=== PATIENT | female | born 2000 | race Caucasian/White ===

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

== ENCOUNTER 2022-03-18 01:38 | Outpatient (CLI) | payer MEDICAID, SELFPAY ==
--- NOTE | 2022-03-18 | DI.MRI_ITS ---
Exam(s) MR LOWER EXTREMITY RT WO EXAM: MR LOWER EXTREMITY RT WO CLINICAL HISTORY: RT MEDIAL TIBIAL STRESS SYNDROME,S86.891A. TECHNIQUE: Multiplanar multisequence MRI was performed. COMPARISON: MR MR LOWER EXTREMITY LT WO from 12/23/2019 CR XR KNEE 4 VIEW RIGHT from 02/20/2022 FINDINGS: BONES: There is no fracture or contusion pattern. There does appear to be a small amount of periostea l fluid at the level of the anterior tibial tubercle just inferior to the insertion site of the krishnamurthy lar tendon. JOINTS: Articular cartilage is unremarkable. No effusion is present. TENDONS: Extensor mechanism: There is very mild increased signal seen in the inferior aspect of the inferior p atellar tendon. Medial retinaculum: The visualized portion of the medial retinaculum is unremarkable. Lateral retinaculum: The visualized portion of the lateral retinaculum is unremarkable. Popliteus: Unremarkable. MUSCLES: Unremarkable. MENISCI: The medial meniscus is unremarkable. The lateral meniscus is unremarkable. SOFT TISSUES: There is mild edema in the soft tissues anterior to the anterior tibial tubercle. LIGAMENTS: Anterior Cruciate: Unremarkable. Posterior Cruciate: Unremarkable. Medial Collateral:Unremarkable. Lateral Collateral: Unremarkable. OTHER: IMPRESSION: Mild periosteal edema at the level of the anterior tibial tubercle with surrounding mild edema in the soft tissues. The findings can be seen with medial tibial stress syndrome. Patellar tendinitis and anterior patellar bursitis should also be considered. DATA REPOSITORY:
== END 2022-03-18 01:58 ==
LOC: DI 01:38
PROVIDERS: PCP Specialist; Visit Provider Physician Assistant
DX: S86.891A Other injury of other muscle(s) and tendon(s) at lower leg level, right leg, initial encounter (principal); M79.89 Other specified soft tissue disorders; M76.51 Patellar tendinitis, right knee; M70.41 Prepatellar bursitis, right knee
CPT/HCPCS: 73718

== ENCOUNTER 2022-09-03 10:07 | Outpatient (REF) | payer MEDICAID, SELFPAY | END 2022-09-03 10:08 | disposition home or self-care (01) | LOC: LBN 10:07 | PROVIDERS: PCP Specialist; Visit Provider Physician Assistant | DX: J02.9 Acute pharyngitis, unspecified (principal) | CPT/HCPCS: 87070 ==

== ENCOUNTER → 2023-03-16 02:25 | Outpatient (CLI) | payer BC, MEDICAID, SELFPAY ==
--- NOTE | 2023-03-16 | DI.MRI_ITS ---
Exam(s) MR LOWER EXTREMITY RT WO EXAM: MR LOWER EXTREMITY RT WO CLINICAL HISTORY: RT MEDIAL TIBIAL STRESS SYNDROME S86.391A TECHNIQUE: Multiplanar multisequence MRI was performed without intravenous contrast. COMPARISON: MR MR LOWER EXTREMITY RT WO from 12/23/2019 CR XR KNEE 4 VIEW RIGHT from 02/20/2022 FINDINGS: Marker was placed on the area of concern. BONES/JOINTS: No fracture or contusion pattern. There is normal marrow signal. MUSCULOTENDINOUS STRUCTURES: The muscles show normal signal and size. No muscular fatty atrophy. SOFT TISSUES: There is mild edema seen in the soft tissues along the medial aspect of the mid to dist al tibia corresponding to the area designated by the marker. No focal fluid collection is identified . OTHER FINDINGS: None. IMPRESSION: Findings of mild edema seen in the soft tissues adjacent to the mid and distal tibia. The findings w ould be consistent with medial tibial stress syndrome. No fracture is identified. DATA REPOSITORY:
--- NOTE | 2023-03-16 | DI.MRI_ITS ---
Exam(s) MR LOWER EXTREMITY LT WO EXAM: MR LOWER EXTREMITY LT WO CLINICAL HISTORY: LT MEDIAL TIBIAL STRESS SYNDROME S86.892A TECHNIQUE: Multiplanar multisequence MRI was performed without intravenous contrast. COMPARISON: MR MR LOWER EXTREMITY LT WO from 12/23/2019 FINDINGS: A marker was placed on the area of concern. BONES/JOINTS: No fracture or contusion pattern. No bone lesions identified. There is normal marrow si gnal. MUSCULOTENDINOUS STRUCTURES: The muscles show normal signal and size. No muscular fatty atrophy. SOFT TISSUES: There is a small amount of edema seen in the soft tissues along the medial aspect of th e tibia (series 5001, images 9 through 32). There is otherwise normal signal in the soft tissues. N o focal fluid collection is identified. OTHER FINDINGS: None. IMPRESSION: Mild edema in the soft tissues immediately adjacent to the medial mid to distal tibia. There is norm al marrow signal. The findings would be consistent with a diagnosis of medial tibial stress syndrome . DATA REPOSITORY:
== END ==
PROVIDERS: PCP Specialist; Visit Provider Specialist
DX: S86.892A Other injury of other muscle(s) and tendon(s) at lower leg level, left leg, initial encounter (principal); X58.XXXA Exposure to other specified factors, initial encounter
CPT/HCPCS: 73718

== ENCOUNTER 2024-05-05 12:02 | Outpatient (CLI) | payer BC, SELFPAY ==
--- NOTE | 2024-05-05 15:35 | DI.RAD_ITS ---
Exam(s) XR FOOT LT COMPLETE EXAM: XR FOOT LT COMPLETE CLINICAL HISTORY: PUNCTURE WOUND W FOREIGN BODY, LEFT FOOT, SUBSEQUENT ENCOUNTER S96.041P. TECHNIQUE: 2D digital imaging was performed. Three views. COMPARISON: No exams were available for comparison FINDINGS: BONES: No acute fracture is present. No bony destructive lesion is seen. JOINTS: No dislocation present. SOFT TISSUE: A BB marker was placed at the area of the puncture wound at the plantar aspect of the fo ot near the 5th metatarsal head. No foreign body is identified. No abnormal gas collection is visib le. IMPRESSION: No evidence of foreign body. DATA REPOSITORY: RADIATION DOSE DELIVERED:
== END 2024-05-05 12:22 ==
LOC: DI 12:02
PROVIDERS: PCP Specialist
DX: S91.342D Puncture wound with foreign body, left foot, subsequent encounter (principal); X58.XXXD Exposure to other specified factors, subsequent encounter
CPT/HCPCS: 73630